=== PATIENT | female | born 1990 | race Two or more races ===

== ENCOUNTER 2020-09-30 09:18 | Emergency (ER) | payer OTHER ==
[~2020-09-30] VITALS: Ht 172.7 cm; Wt 55.8 kg
[~2020-09-30 09:18] MED LIST: METOPROLOL SUCC25 MG; NAPROXEN500 MG PO
== END 2020-09-30 13:30 | disposition home or self-care (01) ==
LOC: ER 09:18
DX: N39.0 Urinary tract infection, site not specified (principal)